=== PATIENT | male | born 1960 | race Caucasian/White ===

== ENCOUNTER 2019-12-22 19:14 | Inpatient (IN) | payer OTHER, SELFPAY ==
--- NOTE | ~2019-12-22 | US_ITS ---
US renal BI 12/23/2019 14:12 Procedure: Realtime transabdominal ultrasound of the kidneys and bladder. Indication: Acute renal insufficiency Comparison: No prior studies for comparison. Findings: Renal echotexture is normal bilaterally without hydronephrosis, contour deforming mass or r enal calculus. The right kidney measures 12.4 cm and left kidney measures 13.4 cm. Bladder within no rmal limits. Impression: 1: Unremarkable renal ultrasound. No stones, masses or hydronephrosis. Reviewed, dictated and finalized at location B. Impression: 1: Unremarkable renal ultrasound. No stones, masses or hydronephrosis.
[2019-12-22 19:14] VITALS: BP 215/98; PULSE 96; RESP 20; TEMP 36.8; O2SAT 96
--- NOTE | 2019-12-22 19:16 | ED.PSYCH ---
HPI - Psych General Chief Complaint: Psychiatric Symptoms Stated Complaint: si Time Seen by Provider: 12/22/19 19:15 History of Present Illness HPI Narrative: He has had several recent set backs in his personal and professional life recently which have lead him to feel depressed and alone. Most recently he was demoted at work. Since that time he has stopped taking care of himself. 3 weeks ago he was admitted to an out of state hospital for sepsis 2/2 to a diabetic foot wound. He also found to be in a-fib at that time. He has not taken any of the medications that he was prescribed at discharge including insulin. Blood sugar has been running around 300. No chest pain, SOB, nausea, abdominal pain, fever. He reports that he has considered hanging himself. Recently he actually drove himself to a [employer] where he works with the intention of hanging himself from a rafter. Related Data Home Medications Medication Instructions Recorded Confirmed atorvastatin 20 mg tablet 10 mg PO DAILY 04/25/19 12/22/19 aspirin [Aspirin Low Dose] 81 mg PO DAILY 12/22/19 12/22/19 diltiazem HCl 240 mg PO DAILY 12/22/19 12/22/19 gabapentin 600 mg PO BID 12/22/19 12/22/19 glipizide 5 mg PO BID 12/22/19 12/22/19 Allergies Allergy/AdvReac Type Severity Reaction Status Date / Time No Known Allergies Allergy Verified 12/22/19 19:33 Review of Systems Review of Systems: All systems reviewed & are unremarkable except as noted in HPI and below Constitutional: Constitutional: Reports fatigue and Denies fever(s) ENT: Denies dizziness Cardiovascular: Cardiovascular: Denies chest pain Respiratory: Respiratory: Denies dyspnea Gastrointestinal: Gastrointestinal: Denies abdominal pain, Denies nausea and Denies vomiting Genitourinary: Genitourinary: Denies dysuria Musculoskeletal: Musculoskeletal: Denies back pain Neurologic: Denies confusion, Denies dizziness and Denies weakness Psychiatric: Psychiatric: Reports depression, Denies homicidal ideation and Reports suicidal ideation Endocrine: Endocrine: Reports polyuria PMFSH Past Medical History Medical History (Updated 12/23/19 @ 07:12 by Messi Jernigan MD) Chronic kidney disease, stage 3 Diabetes mellitus Hyperlipidemia Hypertension Peripheral neuropathy Surgical History Surgical History (Updated 12/23/19 @ 03:49 by Niko Wynn MD) History of amputation of lesser toe Social History Social History Smoking status: Never smoker Alcohol intake: never Substance use: never Substance use type: does not use Spiritual care concerns: No Exam Const: General: healthy appearing, no acute distress and alert Orientation/consciousness: patient oriented x3 HENMT: Head: normal to inspection Resp: Effort & Inspection: normal respiratory effort Auscultation: clear to auscultation bilaterally, no rales, no rhonchi and no wheezes Cardio: Jugular venous distension: no JVD Rate: regular rate Rhythm: regular rhythm Heart sounds: no murmurs GI: Inspection: non-distended GI Palp: Yes Soft to palpation and No Tenderness to palpation present (GI) Skin: General skin exam: normal color Neuro: General: patient oriented x3, moves all extremities, no focal motor deficits and CN's II-XI intact bilaterally Speech: normal speech Extrem: General: no edema Psych: Appearance: grossly normal and well kempt Thought content: Yes Suicidality present Course Vital Signs Vital signs: Vital Signs Temperature 36.8 C 12/22/19 19:14 Pulse Rate 96 12/22/19 19:14 Respiratory Rate 20 12/22/19 19:14 Blood Pressure 215/98 H 12/22/19 19:14 Pulse Oximetry 96 12/22/19 19:14 Temperature 36.7 C 12/23/19 00:00 Pulse Rate 82 12/23/19 04:02 Respiratory Rate 12 12/23/19 04:02 Blood Pressure 166/73 H 12/23/19 04:02 Pulse Oximetry 98 12/23/19 04:02 MDM - Psych MDM Narrative Medical decision making narrative: He will need psych evaluation. I cannot medic
--- NOTE | 2019-12-22 19:41 | ECG_ITS ---
Measurements Intervals [place] Rate: 93 P: 50 [place]: 197 QRS: 7 QRSD: 81 T: 46 QT: 331 QTc: 413 Interpretive Statements SINUS RHYTHM BASELINE ARTIFACT- I, II, AVR, AVL, AVF, V1-V2 BORDERLINE ECG Electronically Signed On 12-22-2019 21:56:43 CDT by Eddie Enriquez D.O.
[2019-12-22 19:49] LABS: Basophils Percent Auto 0.5 % (0.2-1.2); Eosinophils Absolute Auto 0.2 K/mm3 (0-0.3); Eosinophils Percent Auto 2.2 % (0-4.4); Hematocrit 27.5 % (42.0-52.0); Immature Granulocyte Absolute 0.07 K/mm3 (0.00-0.031); Immature Granulocyte Percent A 0.8 % (0-0.5); Lymphocytes Absolute Auto 1.89 K/mm3 (0.9-3.2); Lymphocytes Percent Auto 22.8 % (18.3-44.2); Mean Corpuscular HGB Conc 32.7 g/dl (32-36); Mean Corpuscular Volume 88.7 fl (80-100); Mean Platelet Volume 8.9 fl (7.4-10.4); Monocytes Absolute Auto 0.5 K/mm3 (0.1-0.6); Monocytes Percent Auto 5.7 % (2.6-8.5); Neutrophils Absolute Auto 5.7 K/mm3 (1.3-6.7); Platelet Count Result 265 k/mm3 (150-375); Red Cell Distribution Width 12.7 % (11.5-14.5); White Blood Count 8.3 K/mm3 (4.5-10.0)
[2019-12-22 20:00] LABS: INR 1.1; Prothrombin Time 13.8 Seconds (11.1-14.7)
[2019-12-22 20:00] LABS: Ethanol < 10 mg/dL (<10)
[2019-12-22 20:01] LABS: Partial Thromboplastin Time 33.3 SECONDS (22.3-36.8)
[2019-12-22 20:02] LABS: Alanine Aminotransferase 11 U/L (4-50); Albumin Level 3.8 g/dL (3.5-5.1); Alkaline Phosphatase 182 U/L (38-126); Anion Gap 8 mmol/L (8-16); Aspartate Amino Transferase 17 U/L (17-59); Bilirubin,Total 0.3 mg/dL (0.2-1.3); Blood Urea Nitrogen 39 mg/dL (9-20); Calcium 8.8 mg/dL (8.4-10.2); Carbon Dioxide 22 mmol/L (22-30); Chloride 108 mmol/L (98-107); Estimated Glomerular Filt Rate 19; Glucose 208 mg/dL (75-110); Potassium 4.6 mmol/L (3.4-5.0); Sodium 138 mmol/L (137-145)
[2019-12-22 20:13] LABS: Troponin I 0.014 ng/mL (0.000-0.034)
[2019-12-22] MEDS: SODIUM CHLORIDE 0.9% IV 1,000 ML 999 ML IV CONT (20:34)
--- NOTE | 2019-12-22 20:35 | PC.NURSE ---
PT ATTEMPTED TO VOID. UNABLE TO VOID AT THIS TIME. STATES WILL TRY AGAIN LATER
[2019-12-22 20:37] VITALS: BP 181/101; PULSE 92; RESP 20; O2SAT 97
[2019-12-22 21:32] VITALS: BP 192/92; PULSE 88; RESP 20; O2SAT 99
[2019-12-22 21:51] VITALS: BP 192/92; PULSE 88; RESP 20; O2SAT 100
--- NOTE | 2019-12-22 22:08 | PC.NURSE ---
This patient, Angus Crowe, was admitted to Medical status, and placed in Intensive Care Unit-11. Patient/family oriented to hospital policies and general routines including ID bracelet, bed and alarms, visiting hours, pain management, procedures, bathroom and other care routines, personal items, smoking policy, room service/diet, and visiting hours. Valuables list has been completed. Information on how to activate the Rapid Response Team has been discussed. Patient/Family are encouraged to report perceived risks to care and to ask questions if they do not understand what they are told or what they should do.
[2019-12-22 22:14] VITALS: BP 198/103; PULSE 88; RESP 16; TEMP 36.9; O2SAT 100; BMI 32.7
[2019-12-22 22:53] VITALS: BMI 32.7
[2019-12-22] MEDS: LACTATED RINGERS 1,000 ML 150 ML IV CONT (23:06)
[2019-12-23] VITALS (7 sets, daily range): BP systolic 166–197; BP diastolic 73–104; PULSE 82–88; RESP 12–20; TEMP 36.5–36.7; O2SAT 94–100
[2019-12-23] MEDS: hydrALAZINE HCL 20 MG/ML VIAL 10 MG IV PUSH ×3 (00:23→17:33)
[2019-12-23 01:41] LABS: Add Urine Microscopic? YES; Appearance Urine Clear (Clear); Bilirubin Urine Negative (Negative); Blood Urine Negative (Negative); Color Urine Straw (Yellow); Glucose Urine UA 3+ mg/dL (Negative); Ketones Urine Negative (Negative); Leukocyte Esterase Ur Negative LEU/UL (Negative); Mucus Urine Rare /lpf; Nitrate Urine Negative (Negative); Protein Urine 3+ mg/dL (Negative); RBC Urine 0-2 /hpf (0-2); Squamous Epithelial Cell Urine Rare /hpf (Few); Urobilinogen Urine Negative mg/dL (<2.0); WBC Urine 0-3 /hpf
[2019-12-23 01:57] LABS: Amphetamine Screen Urine Negative (Negative); Barbiturate Screen Urine Negative (Negative); Benzodiazepines Screen Urine Negative (Negative); Cannabinoid Screen Urine Negative (Negative); Cocaine Screen Urine Negative (Negative); Methadone Screen Urine Negative (Negative); Opiate Screen Urine Negative (Negative); Phencyclidine Screen Urine Negative (Negative)
--- NOTE | 2019-12-23 03:42 | PM.IMHP ---
H&P: HPI History of Present Illness Date/Time: 12/23/19 03:42 Chief complaint: SHAR, suicidal ideations, DM Narrative: This is a pleasant 59-year-old obese diabetic male who presented to the [facility] with suicidal thoughts. Apparently the patient has had increased stressful life events including his girlfriend leaving him approximately 6 months ago, his parents dying, and being demoted at work which has caused him to become very depressed. The patient admits that he considered driving to work and hanging himself there to end his life. Ultimately he was too scared to carry out his thoughts. Apparently the patient was hospitalized in [facility] secondary to a diabetic foot about a month ago. since then he has not been taking any of his home medications including his home insulin. he has been checking his blood sugars at home and states that they have been around 300. The patient was evaluated emergency room this evening and found to have an elevated blood pressures with systolic blood pressure in the 200s. The patient was also found to be in acute renal failure with a creatinine of 3.4. on review of his previous labs it appears that his baseline creatinine is around 1.3. On further questioning the patient denies any chest pain, palpitations, shortness of breath, blurry vision, double vision, abdominal pain, dysuria, hematuria, lower extremity swelling, diarrhea, rashes, or focal neurological symptoms. he does have a wound on the lateral aspect of his left foot that is healing. No other complaints. Review of Systems Review of Systems: All systems reviewed & are unremarkable except as noted in HPI and below PMFSH Past Medical History Medical History (Updated 12/23/19 @ 03:52 by Niko Wynn MD) Chronic kidney disease, stage 3 Diabetes mellitus Hyperlipidemia Hypertension Peripheral neuropathy Surgical History Surgical History (Updated 12/23/19 @ 03:49 by Niko Wynn MD) History of amputation of lesser toe Social History Social History Smoking status: Never smoker Alcohol intake: never Substance use: never Substance use type: does not use Spiritual care concerns: No Meds Home Medications and Allergies Home Medications Medication Instructions Recorded Confirmed Type atorvastatin 20 mg tablet 10 mg PO DAILY 04/25/19 12/22/19 History aspirin [Aspirin Low Dose] 81 mg PO DAILY 12/22/19 12/22/19 History diltiazem HCl 240 mg PO DAILY 12/22/19 12/22/19 History gabapentin 600 mg PO BID 12/22/19 12/22/19 History glipizide 5 mg PO BID 12/22/19 12/22/19 History Allergies Allergy/AdvReac Type Severity Reaction Status Date / Time No Known Allergies Allergy Verified 12/22/19 19:33 Vital Signs Vital Signs - 24 hr 12/22/19 19:14 12/22/19 20:37 12/22/19 21:32 Temperature 36.8 C Pulse Rate 96 92 88 Respiratory Rate 20 20 20 Blood Pressure 215/98 H 181/101 H 192/92 H Pulse Oximetry 96 97 99 12/22/19 21:51 12/22/19 22:14 12/23/19 00:00 Temperature 36.9 C 36.7 C Pulse Rate 88 88 85 Respiratory Rate 20 16 20 Blood Pressure 192/92 H 198/103 H 172/78 H Pulse Oximetry 100 100 94 Exam Const: General: cooperative, no acute distress, alert and awake Nutritional Appearance: obese morbidly obese Orientation/consciousness: patient oriented x3 HENMT: Head: normal to inspection General nose exam: Normal external nose present Face and sinus: normal facial exam Mouth: Yes Normal oral and palatal mucosa present and Yes oropharynx normal Eyes: Pupils: Equal, round and reactive pupils present EOM: EOMs intact bilaterally Neck: Neck: supple and no JVD Thyroid: thyroid normal Lymphatic: lymphadenopathy not noted Resp: Effort & Inspection: normal respiratory effort Auscultation: clear to auscultation bilaterally Cardio: Rate: regular rate Rhythm: regular rhythm Heart sounds: no murmurs GI: Inspection: normal to inspection Auscultation: normal reagan
[2019-12-23] MEDS: ACETAMINOPHEN 325 MG TABLET 650 MG PO ×2 (03:47→08:48)
[2019-12-23] MEDS: LABETALOL HCL INJ 100 MG/20 ML VIAL 10 MG IV PUSH (03:47)
[2019-12-23 05:05] LABS: Basophils Percent Auto 0.4 % (0.2-1.2); Eosinophils Absolute Auto 0.2 K/mm3 (0-0.3); Eosinophils Percent Auto 1.8 % (0-4.4); Hematocrit 24.8 % (42.0-52.0); Hemoglobin 8.3 g/dL (14.0-18.0); Immature Granulocyte Absolute 0.05 K/mm3 (0.00-0.031); Immature Granulocyte Percent A 0.6 % (0-0.5); Lymphocytes Absolute Auto 2.25 K/mm3 (0.9-3.2); Lymphocytes Percent Auto 27.2 % (18.3-44.2); Mean Corpuscular HGB Conc 33.5 g/dl (32-36); Mean Corpuscular Volume 86.7 fl (80-100); Mean Platelet Volume 9.2 fl (7.4-10.4); Monocytes Absolute Auto 0.6 K/mm3 (0.1-0.6); Monocytes Percent Auto 6.7 % (2.6-8.5); Neutrophils Absolute Auto 5.2 K/mm3 (1.3-6.7); Neutrophils Percent Auto 63.3 % (45.5-73.1); Platelet Count Result 227 k/mm3 (150-375); Red Blood Count 2.86 M/mm3 (4.6-6.20); Red Cell Distribution Width 12.7 % (11.5-14.5); White Blood Count 8.3 K/mm3 (4.5-10.0)
[2019-12-23 05:20] LABS: Hemoglobin A1C 7.2 % (<5.7)
[2019-12-23 05:21] LABS: Anion Gap 5 mmol/L (8-16); Blood Urea Nitrogen 33 mg/dL (9-20); Calcium 8.2 mg/dL (8.4-10.2); Carbon Dioxide 22 mmol/L (22-30); Chloride 111 mmol/L (98-107); Estimated CRCL calculation 33 ml/min; Estimated Glomerular Filt Rate 20; Glucose 208 mg/dL (75-110); Potassium 4.5 mmol/L (3.4-5.0); Sodium 138 mmol/L (137-145)
[2019-12-23] MEDS: LACTATED RINGERS 1,000 ML 150 ML IV CONT ×2 (05:43→12:21)
[2019-12-23] MEDS: ASPIRIN 81 MG ENTERIC TABLET PO (08:11)
[2019-12-23] MEDS: ATORVASTATIN 10 MG TABLET PO (08:11)
--- NOTE | 2019-12-23 08:11 | PM.CNNEP ---
Assessment and Plan Assessment and plan (1) Chronic kidney disease, stage 3: Code(s): N18.3 - Chronic kidney disease, stage 3 (moderate) Status: Acute Assessment and Plan: Angus has chronic kidney disease. His creatinine was 2.4 in May. It was normal in August of 2018. I suspect that this is due to hypertension and diabetes. We can do some test to make shows nothing else going on. Other causes would include glomerulonephritis, obstruction, interstitial nephritis, or infiltrative diseases. Will check serology, immunofixation, and a renal ultrasound. (2) HSAR (acute kidney injury): Code(s): N17.9 - Acute kidney failure, unspecified Status: Acute Assessment and Plan: The patient probably has acute on chronic kidney disease as well. We can't completely rule out just progression of his kidney disease but this would be somewhat rapid having had a creatinine of 2.4 in May. Depending on how long and how high his sugars and blood pressure have been this would accelerate his chronic damage of course. The patient could be dehydrated. He has had high sugars for a few weeks and probably due glucosuria and osmotic diuresis. He does have changes of venous stasis dermatitis and has very little swelling. He tells me that he usually does have some swelling. So I think he is probably dry. His blood pressure is quite high. He could have had very high blood pressures the last few weeks as well and have hypertensive nephropathy. If so this should improve to some degreewith control the blood pressure over the next few weeks. obstruction could always be an issue as well. Glomerulonephritis, interstitial nephritis, and infiltrative diseases could be occurring as well. (3) Suicidal ideation: Code(s): R45.851 - Suicidal ideations Status: Acute Assessment and Plan: The patient has a sitter and is going to be seen by Psychiatry. (4) Uncontrolled hypertension: Code(s): I10 - Essential (primary) hypertension Status: Acute Assessment and Plan: Blood pressure is quite high. Will get him back on his outpatient medications. (5) Hyperlipidemia: Qualifiers: Hyperlipidemia type: unspecified Qualified Code(s): E78.5 - Hyperlipidemia, unspecified Code(s): E78.5 - Hyperlipidemia, unspecified Status: Chronic Assessment and Plan: He is on atorvastatin for this (6) Diabetes mellitus: Code(s): E11.9 - Type 2 diabetes mellitus without complications Status: Acute Assessment and Plan: he is on Accu-Cheks and sliding-scale insulin History of Present Illness Reason for Consult Consult date: 12/23/19 Chief Complaint Chief complaint: SHAR, suicidal ideations, DM History of Present Illness Narrative: Angus is a very pleasant 59-year-old gentleman who has diabetes for many years with nephropathy, neuropathy, and retinopathy. He also has hypertension, depression, hyperlipidemia, who came in because he felt like he wanted to kill himself. He has had stresses at work and at home. He presented to [facility] emergency room with these complaints. The patient has diabetes but has not taking his medicines for the last few weeks. His sugars have been running around 300. He says he has been urinating well. Somewhat frequently. No bloody foamy cloudy or smelly urine no kidney stones or bladder infections. He has not been taking any [id number]-[id number] medications. He has longstanding hypertension as well. This is been going on for many years. Control of this is variable. Sometimes when under lots of stress, like now, it is higher. He also has not been taking his antihypertensives. The patient has diabetic retinopathy in is getting injections. He also has diabetic neuropathy and takes gabapentin. He lost 2 toes on his right foot last May. He was at [facility] in [facility]. There he saw a kidney doctor a
[2019-12-23 08:26] LABS: Glucose Point of Care 200 (65-105)
[2019-12-23 09:02] LABS: Creatine Kinase 110 U/L (55-170)
[2019-12-23 09:09] LABS: Complement C3 144 mg/dL (88-165)
[2019-12-23 09:15] LABS: Erythrocyte Sedimentation Rate > 140 mm/hr (0-20)
--- NOTE | 2019-12-23 10:00 | PM.IMPN ---
Progress Note: A&P Assessment and Plan (1) Acute renal failure: Qualifiers: Acute renal failure type: unspecified Qualified Code(s): N17.9 - Acute kidney failure, unspecified Code(s): N17.9 - Acute kidney failure, unspecified Status: Acute Assessment and Plan: Acute on chronic renal failure is likely secondary to ongoing uncontrolled hypertension and diabetes. We will obtain the patient's medical records from [facility] where he last had a renal ultrasound back in April. Check urinalysis with microscopy. Avoid nephrotoxin agents. Renally dose medications. Continue IV fluid challenge overnight. Check renal ultrasound in a.m.. Nephrology consultation in a.m.. 12/23/19 10:00 Patient is a 59-year-old male with history of diabetes patient was brought to the emergency department after he had expressed suicidal ideation patient states currently he is under lot of stress, his parents are ill, he has been from his girlfriend and under lot of stress at work and does lot of traveling for his work and his work is very demanding, under stress he expressed thought about hurting himself and friend called police send patient was brought to the emergency department further evaluation, patient states does not have any plan to hurt himself and he is not going to do that, he has been working with his primary care doctor for his diabetes and his hemoglobin A1c is reasonably well controlled 7.2, for his kidney function is worsening most likely secondary to diabetes and hypertension, patient is clinically stable, he is clinically stable can be assessed by the crisis team for further recommendation. in my opinion patient does not need inpatient psychiatry care however he will benefit from outpatient psychiatric evaluation and treatment. for his acute on chronic kidney disease will gently hydrate the patient, will follow-up on the kidney ultrasound, he is seen by sdv pilot/navigator/dds operator and further recommendation to follow. (2) Uncontrolled hypertension: Code(s): I10 - Essential (primary) hypertension Status: Acute Assessment and Plan: Resume diltiazem in a.m.. P.r.n. IV hydralazine is ordered with parameters. We will also administer labetalol IV at this time. Monitor blood pressure. (3) Non-adherence to medical treatment: Code(s): Z91.19 - Patient's noncompliance with other medical treatment and regimen Status: Acute Assessment and Plan: I have counseled the patient extensively on the importance of complying with his medical treatment. He has verbalized his agreement understanding of same. (4) Suicidal ideation: Code(s): R45.851 - Suicidal ideations Status: Acute Assessment and Plan: crisis intervention, suicidal precautions. One on one sitter. (5) Uncontrolled diabetes mellitus: Code(s): E11.65 - Type 2 diabetes mellitus with hyperglycemia Status: Chronic Assessment and Plan: Accu-Cheks, sliding scale insulin coverage, hypoglycemia protocol. Hold glipizide for now (6) Hyperlipidemia: Qualifiers: Hyperlipidemia type: unspecified Qualified Code(s): E78.5 - Hyperlipidemia, unspecified Code(s): E78.5 - Hyperlipidemia, unspecified Status: Chronic Assessment and Plan: Continue atorvastatin. (7) Peripheral neuropathy: Qualifiers: Peripheral neuropathy type: polyneuropathy, unspecified Qualified Code(s): G62.9 - Polyneuropathy, unspecified Code(s): G62.9 - Polyneuropathy, unspecified Status: Chronic Assessment and Plan: resume gabapentin once renal function has improved. Subjective Date/time seen: 12/23/19 10:00 Patient is a 59-year-old male with history of diabetes patient was brought to the emergency department after he had expressed suicidal ideation patient states currently he is under lot of stress, his parents are ill, he has been from his girlfr
[2019-12-23 10:09] LABS: Iron 61 ug/dL (49-181)
[2019-12-23 10:22] LABS: Percent Iron Saturation 21 % (20-50)
[2019-12-23 11:50] LABS: Glucose Point of Care 182 (65-105)
--- NOTE | 2019-12-23 12:42 | PC.NURSE ---
[facility] from crisis here to talk with patient.
[2019-12-23 12:57] LABS: Creatinine Urine 43.4 mg/dL
[2019-12-23 13:03] LABS: Sodium Urine Random 94 meq/L
[2019-12-23 13:14] LABS: Total Protein Urine Random 349 mg/dL
--- NOTE | 2019-12-23 16:06 | PM.DS ---
DS: Admitting Diagnosis Admitting Diagnosis Admitting Diagnosis: SHAR, suicidal ideations, DM DS: Discharge Diagnosis Discharge Diagnosis (1) Acute renal failure: Qualifiers: Acute renal failure type: unspecified Qualified Code(s): N17.9 - Acute kidney failure, unspecified Code(s): N17.9 - Acute kidney failure, unspecified Status: Acute Assessment and Plan: Acute on chronic renal failure is likely secondary to ongoing uncontrolled hypertension and diabetes. We will obtain the patient's medical records from [facility] where he last had a renal ultrasound back in April. Check urinalysis with microscopy. Avoid nephrotoxin agents. Renally dose medications. Continue IV fluid challenge overnight. Check renal ultrasound in a.m.. Nephrology consultation in a.m.. 12/23/19 10:00 Patient is a 59-year-old male with history of diabetes patient was brought to the emergency department after he had expressed suicidal ideation patient states currently he is under lot of stress, his parents are ill, he has been from his girlfriend and under lot of stress at work and does lot of traveling for his work and his work is very demanding, under stress he expressed thought about hurting himself and friend called police send patient was brought to the emergency department further evaluation, patient states does not have any plan to hurt himself and he is not going to do that, he has been working with his primary care doctor for his diabetes and his hemoglobin A1c is reasonably well controlled 7.2, for his kidney function is worsening most likely secondary to diabetes and hypertension, patient is clinically stable, he is clinically stable can be assessed by the crisis team for further recommendation. in my opinion patient does not need inpatient psychiatry care however he will benefit from outpatient psychiatric evaluation and treatment. for his acute on chronic kidney disease will gently hydrate the patient, will follow-up on the kidney ultrasound, he is seen by table setter and further recommendation to follow. (2) Uncontrolled hypertension: Code(s): I10 - Essential (primary) hypertension Status: Acute Assessment and Plan: Resume diltiazem in a.m.. P.r.n. IV hydralazine is ordered with parameters. We will also administer labetalol IV at this time. Monitor blood pressure. (3) Non-adherence to medical treatment: Code(s): Z91.19 - Patient's noncompliance with other medical treatment and regimen Status: Acute Assessment and Plan: I have counseled the patient extensively on the importance of complying with his medical treatment. He has verbalized his agreement understanding of same. (4) Suicidal ideation: Code(s): R45.851 - Suicidal ideations Status: Acute Assessment and Plan: crisis intervention, suicidal precautions. One on one sitter. (5) Uncontrolled diabetes mellitus: Code(s): E11.65 - Type 2 diabetes mellitus with hyperglycemia Status: Chronic Assessment and Plan: Accu-Cheks, sliding scale insulin coverage, hypoglycemia protocol. Hold glipizide for now (6) Hyperlipidemia: Qualifiers: Hyperlipidemia type: unspecified Qualified Code(s): E78.5 - Hyperlipidemia, unspecified Code(s): E78.5 - Hyperlipidemia, unspecified Status: Chronic Assessment and Plan: Continue atorvastatin. (7) Peripheral neuropathy: Qualifiers: Peripheral neuropathy type: polyneuropathy, unspecified Qualified Code(s): G62.9 - Polyneuropathy, unspecified Code(s): G62.9 - Polyneuropathy, unspecified Status: Chronic Assessment and Plan: resume gabapentin once renal function has improved. DS: Summary Hospital Course Reason for hospitalization: Chief complaint: SHAR, suicidal ideations, DM Narrative: This is a pleasant 59-year-old obese diabetic male who presented to the
[2019-12-23] MEDS: amLODIPine BESYLATE 5 MG TABLET PO (16:24)
--- NOTE | 2019-12-23 18:12 | PC.NURSE ---
Patient instructed to follow up with his kidney doctor and primary care doctor as soon as possible. Safety contract from [facility]a with crisis was given to patient with discharge paperwork. Patient told to get lab work done within 1 week and was given a prescription for hydralazine.
[2019-12-26 15:10] LABS: Kappa\\Lambda Light Chains 2.29 (0.26-1.65); Lambda Light Chain 48.4 mg/L (5.7-26.3)
[2019-12-27 12:01] LABS: Complement Total CH50 >60 U/mL (31-60)
== END 2019-12-23 18:05 | disposition home or self-care (01) | DRG 683 ==
LOC: ANHED 20:50 → ANHICU 12-23 02:09
PROVIDERS: Internal Medicine Nephrology; Admitting Provider Family Medicine; Emergency Provider Emergency Medicine; Visit Provider Family Medicine
DX: N17.9 Acute kidney failure, unspecified (principal); R45.851 Suicidal ideations; E11.65 Type 2 diabetes mellitus with hyperglycemia; E78.5 Hyperlipidemia, unspecified; G62.9 Polyneuropathy, unspecified; N18.3 Chronic kidney disease, stage 3 (moderate); I12.9 Hypertensive chronic kidney disease with stage 1 through stage 4 chronic kidney disease, or unspecified chronic kidney disease; Z23 Encounter for immunization
CPT/HCPCS: 36415; 76775; 80048; 80053; 80307; 81001; 82550; 82570; 82728; 83036; 83540; 83550; 83883; 84156; 84300; 84443; 84484; 85025; 85610; 85652; 85730; 85999; 86038; 86160; 86162; 86334; 90471; 90686; 93005; 99285; A9270; G0008; J0360; J7030; J7120